=== PATIENT | male | born 1965 | race Caucasian/White ===

== ENCOUNTER 2016-10-24 16:33 | Emergency (ER) | payer OTHER ==
--- NOTE | 2016-10-24 17:06 | UC ---
Skin Complaint HPI - HPI Summary HPI Summary: 51 YEAR OLD MALE PRESENTS WITH ABSCESS ON HIS SCALP SECONDARY TO AN INFECTED HAIR FOLLICLE. - History of Current Complaint Time Seen by Provider: 10/24/16 17:04 Stated Complaint: SKIN COMPLAINT-SCALP - Allergy/Home Medications Allergies/Adverse Reactions: Allergies Allergy/AdvReac Type Severity Reaction Status Date / Time No Known Allergies Allergy Verified 10/24/16 17:03 Home Medications: Home Medications ARIPiprazole TAB* [Abilify TAB*] 10 mg PO DAILY 10/24/16 [History Confirmed 03/02] DULoxetine DR CAP* [Cymbalta CAP*] 30 mg PO DAILY 10/24/16 [History Confirmed ] Naproxen Sodium [Naproxen Sodium 220 mg cap] 220 mg PO Q8H PRN 10/24/16 [ History Confirmed 10/24/16] Review of Systems Constitutional: Negative Skin: Other - ABSCESS ON LEFT SCALP Eyes: Negative ENT: Negative Respiratory: Negative Cardiovascular: Negative Gastrointestinal: Negative Genitourinary: Negative Motor: Negative Neurovascular: Negative Musculoskeletal: Negative Neurological: Negative Psychological: Negative All Other Systems Reviewed And Are Negative: Yes PMH/Surg Hx/FS Hx/Imm Hx - Surgical History Surgical History: None - Social History Alcohol Use: None Substance Use Type: None Smoking Status (MU): Heavy Every Day Tobacco Smoker Type: Cigarettes Amount Used/How Often: 1 & 1/2 PPD Household Exposure Type: Cigarettes Physical Exam Triage Information Reviewed: Yes Eye Exam: Normal ENT Exam: Normal Dental Exam: Normal Neck exam: Normal Neck: Positive: 1 Respiratory Exam: Normal Cardiovascular Exam: Normal Abdominal Exam: Normal Musculoskeletal Exam: Normal Neurological Exam: Normal Psychological Exam: Normal Skin Exam: Other - LEFT SCALP ABSCESS Course/Dx - Diagnoses Provider Diagnoses: LEFT SCALP ABSCESS Discharge - Discharge Plan Condition: Stable Disposition: HOME Prescriptions: Cephalexin CAP* [Keflex CAP*] 500 mg PO TID #30 cap Mupirocin 2% OINT* [Bactroban 2 % Oint*] 1 applic TOPICAL BID #1 tube Patient Education Materials: Abscess (ED), Folliculitis (ED) Referrals: Non Staff,Doctor [Medical Doctor] - If Needed
[2016-10-24 17:12] VITALS: BP 140/106
== END 2016-10-24 17:30 | disposition home or self-care (01) ==
LOC: UCCORT 16:33
DX: L02.811 Cutaneous abscess of head [any part, except face] (principal); F17.210 Nicotine dependence, cigarettes, uncomplicated
CPT/HCPCS: 99212; G0463